=== PATIENT | male | born 1930 | race Caucasian/White ===

== ENCOUNTER 2016-07-24 17:38 | Inpatient (IN) | payer MEDICARE, OTHER ==
[~2016-07-24 17:38] MED LIST: CALCIUM 600 +1 EA10 PO; CIPRO250 M2 PO; COLACE100 M1 PO; IRON325 M3 PO; MULTIVITAMINS1 EAC6 PO; PERCOCET 5-3251 EACH PO; SODIUM CHLORIDE 0.9% IV; UROXATRAL10 M1 PO
[2016-07-24 18:26] LABS: BASO % 0.1 % (0-2); HCT-HEMATOCRIT 35.6 % (36.0-53.5); HGB-HEMOGLOBIN 11.8 gm/dl (13.5-17.0); IMMATURE GRANULOCYTES PERCENT 1.3 % (0-0.3); LYMPH % 4.7 % (20-45); LYMPH ABSOLUTE COUNT 0.4 tho/cmm (0.8-4.5); MCH (MEAN CORPUSCULAR HGB) 34.5 pg (28.0-32.0); MCHC MEAN CORPUSCULAR HGB CONC 33.1 % (32.0-36.0); MCV (MEAN CELL VOLUME) 104.1 fl (82.0-96.0); MEAN PLATELET VOLUME 11.5 cmc (9.4-12.4); MONO % 4.2 % (0-12); MONOCYTE ABSOLUTE COUNT 0.3 tho/cmm (0.0-1.2); NEUTROPHILS % 89.7 % (40-80); PLATELET COUNT 208 tho/cmm (150-450); RED BLOOD COUNT 3.42 mil/cmm (4.40-5.70); RED CELL DISTRIBUTION WIDTH 15.8 % (12.4-16.4); WHITE BLOOD COUNT 7.8 tho/cmm (4.0-10.0)
[2016-07-24 18:45] LABS: ALB/GLOB RATIO 1.1 (0.8-2.0); ALKALINE PHOSPHATASE 59 U/L (33-138); ALT/SGPT 30 U/L (12-78); ANION GAP 10 mmol/L (0-20); AST/SGOT 36 U/L (10-40); BILIRUBIN,TOTAL 0.8 mg/dl (0.0-1.5); BLOOD UREA NITROGEN 26 mg/dl (6-24); CALCIUM 8.3 mg/dl (8.5-10.5); CARBON DIOXIDE-VENOUS 27 mmol/L (22-32); CHLORIDE 110 mmol/l (96-110); CREATININE 0.94 mg/dl (0.60-1.30); GLUCOSE 97 mg/dL (70-110); POTASSIUM 4.1 mmol/L (3.7-5.1); SODIUM 143 mmol/L (135-145); eGFR VALUE FOR BLACK >60 mL/Min
[2016-07-24 18:46] LABS: ALBUMIN 3.6 g/dl (3.5-5.0)
[2016-07-24 18:59] LABS: PROCALCITONIN <0.05 ng/ml (0.05-0.09)
[2016-07-24 19:54] LABS: URINE APPEARANCE CLEAR; URINE BILIRUBIN NEGATIVE (NEG); URINE BLOOD SMALL (NEG); URINE COLOR YELLOW; URINE GLUCOSE (UA) NEGATIVE (NEG); URINE KETONE NEGATIVE (NEG); URINE LEUKOCYTE ESTERASE NEGATIVE (NEG); URINE NITRITE NEGATIVE (NEG); URINE PROTEIN NEGATIVE (NEG); URINE SPECIFIC GRAVITY 1.015 (1.003-1.030)
[2016-07-24 19:59] LABS: URINE EPITHELIAL CELLS 0-2 /[HPF] (0-10); URINE RBC 0 /[HPF] (0-5); URINE WBC 0 /[HPF] (0-5)
[2016-07-24] MEDS ORDERED: [UNRECOGNIZED DRUG - REMARK] (23:53)
[2016-07-25 05:25] LABS: HCT-HEMATOCRIT 31.2 % (36.0-53.5); HGB-HEMOGLOBIN 10.2 gm/dl (13.5-17.0); MCH (MEAN CORPUSCULAR HGB) 34.1 pg (28.0-32.0); MCHC MEAN CORPUSCULAR HGB CONC 32.7 % (32.0-36.0); MCV (MEAN CELL VOLUME) 104.3 fl (82.0-96.0); MEAN PLATELET VOLUME 11.5 cmc (9.4-12.4); NEUTROPHIL-AUTOMATED 23.1 tho/cmm (1.6-8.0); PLATELET COUNT 184 tho/cmm (150-450); RED BLOOD COUNT 2.99 mil/cmm (4.40-5.70); WHITE BLOOD COUNT 25.6 tho/cmm (4.0-10.0)
[2016-07-25 05:38] LABS: ANION GAP 12 mmol/L (0-20); BLOOD UREA NITROGEN 21 mg/dl (6-24); CALCIUM 7.4 mg/dl (8.5-10.5); CARBON DIOXIDE-VENOUS 25 mmol/L (22-32); CHLORIDE 111 mmol/l (96-110); CREATININE 1.04 mg/dl (0.60-1.30); GLUCOSE 104 mg/dL (70-110); POTASSIUM 3.8 mmol/L (3.7-5.1); SODIUM 144 mmol/L (135-145); eGFR VALUE FOR BLACK >60 mL/Min
[2016-07-25 06:54] LABS: BAND % 28 % (0-20); BAND ABSOLUTE COUNT 7.2 tho/cmm (0-2.0)
[2016-07-25] MEDS ORDERED: TYLENOL325 M2 PO (11:01)
[2016-07-25] MEDS ORDERED: TAMIFLU75 MG/CAP PO (11:02)
[2016-07-25] MEDS ORDERED: MIRALAX17 G2 PO (11:04)
== END 2016-07-25 11:38 | DRG 866 ==
LOC: EDMED 17:38 → EMR2 20:54 → 5WD 22:45
PROVIDERS: Emergency Medicine; ADMIT Internal Medicine
DX: B34.9 Viral infection, unspecified (principal); Z23 Encounter for immunization; Z85.828 Personal history of other malignant neoplasm of skin
CPT/HCPCS: G0009; J2543; J7030